=== PATIENT | male | born 1965 | race Caucasian/White ===

== ENCOUNTER 2021-09-17 21:28 | Inpatient (IN) | payer OTHER ==
[2021-09-17 16:34] VITALS: BMI 19.9
[2021-09-17] MEDS ORDERED: MAGNESIUM CITRATE 300 ML BOTTLE PO PRN (21:47)
[2021-09-17] MEDS ORDERED: P-EPHED 60MG/TRIPROLIDI 2.5MG TABLET PO PRN (21:47)
[2021-09-17] MEDS ORDERED: guaiFENesin 200 MG/10 ML 10 ML UNIT-DOSE CUPS PO PRN (21:47)
[2021-09-17] MEDS ORDERED: MAGNESIUM HYDROX 2400MG/30ML ORAL SUSPENSION 30 ML CUP PO PRN (21:47)
[2021-09-17] MEDS ORDERED: LOPERAMIDE HCL 2 MG CAPSULE PO PRN (21:47)
[2021-09-17] MEDS ORDERED: MAG HYDROX/AL HYDROX/SIMETH 30 ML UNIT-DOSE CUP PO PRN (21:47)
[2021-09-17] MEDS: THIAMINE HCL 100 MG TABLET (FP) PO SCH (23:46)
[2021-09-17] MEDS: hydrOXYzine PAMOATE 25 MG CAPSULE (FP) PO PRN (23:46)
[2021-09-17] MEDS: MELATONIN 5 MG TABLETS PO SCH (23:46)
[2021-09-18] MEDS ORDERED: methaDONE HCL 40 MG DISPERSABLE TABLET PO SCH (06:00)
[2021-09-18] MEDS ORDERED: TUBERCULIN PPD 5 TU/0.1ML VIAL ID ONE (06:40)
[2021-09-18] MEDS ORDERED: methaDONE HCL 40 MG DISPERSABLE TABLET ONE (07:13)
[2021-09-18] MEDS ORDERED: methaDONE HCL 10 MG TABLET ONE (07:13)
[2021-09-18] MEDS: PRENATAL VITAMINS W/ FOLIC ACID TABLET (FP) PO SCH (10:16)
[2021-09-18 10:19] LABS: HEMATOCRIT 37.4 % (35.4-49); HEMOGLOBIN 12.3 GM/dL (11.7-16.9); MCH 29.5 pg (25.7-33.7); MCHC 32.9 g/dl (32.0-35.9); MEAN CELL VOLUME 89.9 fl (80-96); MEAN PLT VOLUME 10.7 fl (7.5-11.1); PLATELET COUNT 186 10^3/uL (134-434); RBC 4.17 M/mm3 (4.00-5.60); RDW 13.9 % (11.9-15.9); WHITE BLOOD COUNT 5.4 K/mm3 (4.0-10.0)
[2021-09-18 11:27] LABS: CALCIUM 9.2 mg/dL (8.5-10.1)
[2021-09-18 11:28] LABS: ALBUMIN 2.8 g/dl (3.4-5.0)
[2021-09-18 11:29] LABS: BILIRUBIN,TOTAL 0.3 mg/dL (0.2-1)
[2021-09-18 11:30] LABS: TOT PROT 6.4 g/dl (6.4-8.2)
[2021-09-18 11:31] LABS: CREATININE 0.8 mg/dL (0.55-1.3)
[2021-09-18] MEDS: THIAMINE HCL 100 MG TABLET (FP) PO SCH (21:50)
[2021-09-18] MEDS: hydrOXYzine PAMOATE 25 MG CAPSULE (FP) PO PRN (21:50)
[2021-09-18] MEDS: MELATONIN 5 MG TABLETS PO SCH (21:50)
[2021-09-19] MEDS ORDERED: methaDONE HCL 10 MG TABLET ONE (03:24)
[2021-09-19] MEDS ORDERED: methaDONE HCL 40 MG DISPERSABLE TABLET ONE (03:24)
[2021-09-19] MEDS: IBUPROFEN 400 MG TABLET (FP) PO PRN (07:40)
[2021-09-19] MEDS: PRENATAL VITAMINS W/ FOLIC ACID TABLET (FP) PO SCH (09:04)
[2021-09-19] MEDS ORDERED: MASKS NR ONE (09:04)
[2021-09-19] MEDS: ACETAMINOPHEN 325 MG TABLET (FP) PO PRN (09:36)
[2021-09-19 13:44] LABS: PH,URINE 7.5 (5.0-8.0); URINE APPEARANCE CLEAR; URINE BILIRUBIN NEGATIVE (NEGATIVE); URINE COLOR DK YELLOW; URINE GLUCOSE (UA) NEGATIVE (NEGATIVE); URINE KETONE NEGATIVE (NEGATIVE); URINE LEUK ESTERASE NEGATIVE (NEGATIVE); URINE NITRITE NEGATIVE (NEGATIVE); URINE PROTEIN NEGATIVE (NEGATIVE)
[2021-09-19] MEDS: NICOTINE 10 MG CARTRIDGE (INHALER) IH PRN (16:29)
[2021-09-19] MEDS: THIAMINE HCL 100 MG TABLET (FP) PO SCH (21:21)
[2021-09-19] MEDS: MELATONIN 5 MG TABLETS PO SCH (21:21)
[2021-09-20] MEDS ORDERED: methaDONE HCL 40 MG DISPERSABLE TABLET ONE (03:56)
[2021-09-20] MEDS ORDERED: methaDONE HCL 10 MG TABLET ONE (03:56)
[2021-09-20] MEDS: IBUPROFEN 400 MG TABLET (FP) PO PRN (08:29)
[2021-09-20] MEDS: PRENATAL VITAMINS W/ FOLIC ACID TABLET (FP) PO SCH (09:50)
[2021-09-20] MEDS ORDERED: LIDOCAINE 5% TOPICAL PATCH ONE (10:52)
[2021-09-20] MEDS: LIDOCAINE 5% TOPICAL PATCH TP SCH (10:55)
[2021-09-20] MEDS: NICOTINE 10 MG CARTRIDGE (INHALER) IH PRN ×2 (15:37→21:12)
[2021-09-20] MEDS: LIDOCAINE PATCH REMOVAL MC SCH (21:12)
[2021-09-20] MEDS: MELATONIN 5 MG TABLETS PO SCH (21:12)
[2021-09-20] MEDS: THIAMINE HCL 100 MG TABLET (FP) PO SCH (21:13)
[2021-09-21] MEDS ORDERED: methaDONE HCL 10 MG TABLET ONE (03:40)
[2021-09-21] MEDS ORDERED: methaDONE HCL 40 MG DISPERSABLE TABLET ONE (03:40)
[2021-09-21] MEDS ORDERED: PT OWN MED DRAWER 7, Y5N ONE (08:41)
[2021-09-21] MEDS: IBUPROFEN 400 MG TABLET (FP) PO PRN ×2 (08:54→21:16)
[2021-09-21] MEDS: LIDOCAINE 5% TOPICAL PATCH TP SCH (09:09)
[2021-09-21] MEDS: PRENATAL VITAMINS W/ FOLIC ACID TABLET (FP) PO SCH (09:09)
[2021-09-21] MEDS: NICOTINE 10 MG CARTRIDGE (INHALER) IH PRN ×2 (09:28→21:17)
[2021-09-21] MEDS: MELATONIN 5 MG TABLETS PO SCH (21:17)
[2021-09-21] MEDS: THIAMINE HCL 100 MG TABLET (FP) PO SCH (21:17)
[2021-09-21] MEDS: hydrOXYzine PAMOATE 25 MG CAPSULE (FP) PO PRN (21:17)
[2021-09-21] MEDS: LIDOCAINE PATCH REMOVAL MC SCH (23:03)
[2021-09-22] MEDS ORDERED: methaDONE HCL 10 MG TABLET ONE (06:28)
[2021-09-22] MEDS ORDERED: methaDONE HCL 40 MG DISPERSABLE TABLET ONE (06:28)
[2021-09-22] MEDS: LIDOCAINE 5% TOPICAL PATCH TP SCH (09:58)
[2021-09-22] MEDS: PRENATAL VITAMINS W/ FOLIC ACID TABLET (FP) PO SCH (09:58)
[2021-09-22] MEDS: NICOTINE 10 MG CARTRIDGE (INHALER) IH PRN ×3 (09:59→21:42)
[2021-09-22] MEDS: MELATONIN 5 MG TABLETS PO SCH (21:42)
[2021-09-22] MEDS: THIAMINE HCL 100 MG TABLET (FP) PO SCH (21:42)
[2021-09-22] MEDS: LIDOCAINE PATCH REMOVAL MC SCH (21:43)
[2021-09-22] MEDS: IBUPROFEN 400 MG TABLET (FP) PO PRN (21:44)
[2021-09-23] MEDS ORDERED: methaDONE HCL 10 MG TABLET ONE (03:35)
[2021-09-23] MEDS ORDERED: methaDONE HCL 40 MG DISPERSABLE TABLET ONE (03:36)
[2021-09-23] MEDS: NICOTINE 10 MG CARTRIDGE (INHALER) IH PRN ×3 (06:31→21:49)
[2021-09-23] MEDS: LIDOCAINE 5% TOPICAL PATCH TP SCH (09:43)
[2021-09-23] MEDS: PRENATAL VITAMINS W/ FOLIC ACID TABLET (FP) PO SCH (09:43)
[2021-09-23] MEDS: LIDOCAINE PATCH REMOVAL MC SCH (21:48)
[2021-09-23] MEDS: THIAMINE HCL 100 MG TABLET (FP) PO SCH (21:48)
[2021-09-23] MEDS: MELATONIN 5 MG TABLETS PO SCH (21:48)
[2021-09-24] MEDS ORDERED: methaDONE HCL 10 MG TABLET PO SCH (06:00)
[2021-09-24] MEDS: ACETAMINOPHEN 325 MG TABLET (FP) PO PRN (06:31)
[2021-09-24] MEDS: NICOTINE 10 MG CARTRIDGE (INHALER) IH PRN ×3 (08:58→21:36)
[2021-09-24] MEDS: LIDOCAINE 5% TOPICAL PATCH TP SCH (09:00)
[2021-09-24] MEDS: PRENATAL VITAMINS W/ FOLIC ACID TABLET (FP) PO SCH (09:00)
[2021-09-24] MEDS: hydrOXYzine PAMOATE 25 MG CAPSULE (FP) PO PRN (21:35)
[2021-09-24] MEDS: MELATONIN 5 MG TABLETS PO SCH (21:35)
[2021-09-24] MEDS: LIDOCAINE PATCH REMOVAL MC SCH (21:35)
[2021-09-24] MEDS: THIAMINE HCL 100 MG TABLET (FP) PO SCH (21:35)
[2021-09-25] MEDS ORDERED: methaDONE HCL 10 MG TABLET ONE (04:06)
[2021-09-25] MEDS ORDERED: methaDONE HCL 40 MG DISPERSABLE TABLET ONE (04:06)
[2021-09-25] MEDS: LIDOCAINE 5% TOPICAL PATCH TP SCH (09:08)
[2021-09-25] MEDS: PRENATAL VITAMINS W/ FOLIC ACID TABLET (FP) PO SCH (09:08)
[2021-09-25] MEDS ORDERED: SUVOREXANT 10 MG TABLET PO PRN (10:24)
[2021-09-25] MEDS: NICOTINE 10 MG CARTRIDGE (INHALER) IH PRN ×2 (15:58→21:34)
[2021-09-25] MEDS: THIAMINE HCL 100 MG TABLET (FP) PO SCH (21:35)
[2021-09-25] MEDS: SUVOREXANT 10 MG TABLET PO PRN (21:35)
[2021-09-25] MEDS: METHYL SALICYLATE/MENTHOL OINT 30 GM TUBE TP SCH (21:36)
[2021-09-25] MEDS: LIDOCAINE PATCH REMOVAL MC SCH (21:36)
[2021-09-26] MEDS ORDERED: methaDONE HCL 10 MG TABLET ONE (03:57)
[2021-09-26] MEDS ORDERED: methaDONE HCL 40 MG DISPERSABLE TABLET ONE (03:58)
[2021-09-26] MEDS: NICOTINE 10 MG CARTRIDGE (INHALER) IH PRN ×3 (06:33→21:33)
[2021-09-26] MEDS: LIDOCAINE 5% TOPICAL PATCH TP SCH (09:45)
[2021-09-26] MEDS: PRENATAL VITAMINS W/ FOLIC ACID TABLET (FP) PO SCH (09:46)
[2021-09-26] MEDS: THIAMINE HCL 100 MG TABLET (FP) PO SCH (21:34)
[2021-09-26] MEDS: SUVOREXANT 10 MG TABLET PO PRN (21:35)
[2021-09-26] MEDS: LIDOCAINE PATCH REMOVAL MC SCH (21:35)
[2021-09-26] MEDS: METHYL SALICYLATE/MENTHOL OINT 30 GM TUBE TP SCH (21:36)
[2021-09-27] MEDS ORDERED: methaDONE HCL 40 MG DISPERSABLE TABLET ONE (03:23)
[2021-09-27] MEDS ORDERED: methaDONE HCL 10 MG TABLET ONE (03:23)
[2021-09-27] MEDS: NICOTINE 10 MG CARTRIDGE (INHALER) IH PRN ×3 (06:29→21:35)
[2021-09-27] MEDS: LIDOCAINE 5% TOPICAL PATCH TP SCH (09:35)
[2021-09-27] MEDS: PRENATAL VITAMINS W/ FOLIC ACID TABLET (FP) PO SCH (09:35)
[2021-09-27] MEDS: IBUPROFEN 400 MG TABLET (FP) PO PRN (09:43)
[2021-09-27] MEDS: THIAMINE HCL 100 MG TABLET (FP) PO SCH (21:35)
[2021-09-27] MEDS: LIDOCAINE PATCH REMOVAL MC SCH (21:35)
[2021-09-27] MEDS: METHYL SALICYLATE/MENTHOL OINT 30 GM TUBE TP SCH (21:35)
[2021-09-27] MEDS: SUVOREXANT 10 MG TABLET PO PRN (21:37)
[2021-09-28] MEDS ORDERED: methaDONE HCL 10 MG TABLET ONE (03:56)
[2021-09-28] MEDS ORDERED: methaDONE HCL 40 MG DISPERSABLE TABLET ONE (03:56)
[2021-09-28] MEDS: NICOTINE 10 MG CARTRIDGE (INHALER) IH PRN ×2 (06:29→21:33)
[2021-09-28] MEDS: PRENATAL VITAMINS W/ FOLIC ACID TABLET (FP) PO SCH (09:39)
[2021-09-28] MEDS: LIDOCAINE 5% TOPICAL PATCH TP SCH (09:39)
[2021-09-28] MEDS: SUVOREXANT 10 MG TABLET PO PRN (21:34)
[2021-09-28] MEDS: THIAMINE HCL 100 MG TABLET (FP) PO SCH (21:34)
[2021-09-28] MEDS: LIDOCAINE PATCH REMOVAL MC SCH (21:35)
[2021-09-28] MEDS: METHYL SALICYLATE/MENTHOL OINT 30 GM TUBE TP SCH (21:36)
[2021-09-29] MEDS ORDERED: methaDONE HCL 10 MG TABLET ONE (04:54)
[2021-09-29] MEDS ORDERED: methaDONE HCL 40 MG DISPERSABLE TABLET ONE (04:55)
[2021-09-29] MEDS: IBUPROFEN 400 MG TABLET (FP) PO PRN (06:34)
[2021-09-29] MEDS: NICOTINE 10 MG CARTRIDGE (INHALER) IH PRN ×4 (06:35→21:18)
[2021-09-29] MEDS: LIDOCAINE 5% TOPICAL PATCH TP SCH (09:13)
[2021-09-29] MEDS: PRENATAL VITAMINS W/ FOLIC ACID TABLET (FP) PO SCH (09:13)
[2021-09-29] MEDS: SUVOREXANT 10 MG TABLET PO PRN (21:18)
[2021-09-29] MEDS: LIDOCAINE PATCH REMOVAL MC SCH (21:18)
[2021-09-29] MEDS: THIAMINE HCL 100 MG TABLET (FP) PO SCH (21:18)
[2021-09-29] MEDS: METHYL SALICYLATE/MENTHOL OINT 30 GM TUBE TP SCH (21:18)
[2021-09-30] MEDS ORDERED: methaDONE HCL 10 MG TABLET ONE (03:13)
[2021-09-30] MEDS ORDERED: methaDONE HCL 40 MG DISPERSABLE TABLET ONE (03:14)
[2021-09-30] MEDS: NICOTINE 10 MG CARTRIDGE (INHALER) IH PRN ×4 (06:21→21:23)
[2021-09-30] MEDS: LIDOCAINE 5% TOPICAL PATCH TP SCH (09:13)
[2021-09-30] MEDS: PRENATAL VITAMINS W/ FOLIC ACID TABLET (FP) PO SCH (09:13)
[2021-09-30] MEDS: SUVOREXANT 10 MG TABLET PO PRN (21:24)
[2021-09-30] MEDS: THIAMINE HCL 100 MG TABLET (FP) PO SCH (21:25)
[2021-09-30] MEDS: IBUPROFEN 400 MG TABLET (FP) PO PRN (21:25)
[2021-09-30] MEDS: METHYL SALICYLATE/MENTHOL OINT 30 GM TUBE TP SCH (21:42)
[2021-09-30] MEDS: LIDOCAINE PATCH REMOVAL MC SCH (21:42)
[2021-10-01] MEDS ORDERED: methaDONE HCL 10 MG TABLET ONE (02:53)
[2021-10-01] MEDS ORDERED: methaDONE HCL 40 MG DISPERSABLE TABLET ONE (02:53)
[2021-10-01] MEDS: NICOTINE 10 MG CARTRIDGE (INHALER) IH PRN (06:16)
[2021-10-01 06:49] VITALS: BP 98/67; PULSE 75; TEMP 97.5
[2021-10-01] MEDS: ACETAMINOPHEN 325 MG TABLET (FP) PO PRN (08:24)
[2021-10-01] MEDS: PRENATAL VITAMINS W/ FOLIC ACID TABLET (FP) PO SCH (09:07)
[2021-10-01] MEDS: LIDOCAINE 5% TOPICAL PATCH TP SCH (09:08)
== END 2021-10-01 09:11 | disposition home or self-care (01) | DRG 772 ==
LOC: YASAS 21:28 → Y3E 21:44
PROVIDERS: ADMIT Allergy & Immunology; ATTEND Allergy & Immunology
PROC: HZ42ZZZ Group Counseling for Substance Abuse Treatment, Cognitive-Behavioral (ICD-10-PCS; principal; 2021-09-17)
DX: F11.20 Opioid dependence, uncomplicated (principal); F14.20 Cocaine dependence, uncomplicated; F13.10 Sedative, hypnotic or anxiolytic abuse, uncomplicated; F17.210 Nicotine dependence, cigarettes, uncomplicated; F19.24 Other psychoactive substance dependence with psychoactive substance-induced mood disorder; Z59.00 Homelessness unspecified
CPT/HCPCS: 36415; 73110-TC-RT-FY; 73130-TC-RT-FY; 80053; 81003; 85027; 86780; 87811; 90715; 99282-25; C9803; U0003; U0005